=== PATIENT | male | born 1950 ===

== ENCOUNTER → 2024-06-25 07:44 | Outpatient (REF) | payer MEDICARE, OTHER, SELFPAY | LOC: EMG 07:44 | PROVIDERS: ATTENDING PHYSICIAN Nurse Practitioner Primary Care | DX: R20.2 Paresthesia of skin (principal); M47.816 Spondylosis without myelopathy or radiculopathy, lumbar region; M43.16 Spondylolisthesis, lumbar region; R20.0 Anesthesia of skin | CPT/HCPCS: 95886; 95910 ==

== ENCOUNTER → 2024-06-27 12:19 | Outpatient (REF) | payer MEDICARE, OTHER, SELFPAY | LOC: RAD 12:19 | PROVIDERS: ATTENDING PHYSICIAN Nurse Practitioner Primary Care | DX: I25.10 Atherosclerotic heart disease of native coronary artery without angina pectoris (principal); F17.210 Nicotine dependence, cigarettes, uncomplicated; F10.11 Alcohol abuse, in remission; Z80.0 Family history of malignant neoplasm of digestive organs | CPT/HCPCS: 74177; Q9967 ==

== ENCOUNTER → 2024-10-26 16:30 | Outpatient (REF) | payer MEDICARE, SELFPAY | LOC: RAD 16:30 | PROVIDERS: ATTENDING PHYSICIAN Nurse Practitioner Primary Care | DX: Z77.018 Contact with and (suspected) exposure to other hazardous metals (principal); Z95.810 Presence of automatic (implantable) cardiac defibrillator | CPT/HCPCS: 70030; 71046 ==

== ENCOUNTER → 2024-12-05 14:00 | Outpatient (REF) | payer MEDICARE, SELFPAY | LOC: MRI 14:00 | PROVIDERS: ATTENDING PHYSICIAN Nurse Practitioner Primary Care | DX: R20.0 Anesthesia of skin (principal); M43.16 Spondylolisthesis, lumbar region; D47.2 Monoclonal gammopathy | CPT/HCPCS: 72148 ==